=== PATIENT | female | born 1980 | race Caucasian/White ===

== ENCOUNTER 2020-05-15 17:00 | Day surgery (SDC) | payer OTHER ==
[~2020-05-15] VITALS: Ht 167.8 cm; Wt 77.1 kg
[2020-05-15] MEDS ORDERED: NS IV 1000 ML 1,000 ML IV SCH (17:15)
[2020-05-15] MEDS ORDERED: KETOROLAC 30 MG/ML VIAL IVP ONE (17:15)
[2020-05-15] MEDS ORDERED: ONDANSETRON 4 MG/2 ML (SDV) Z0FRAN IVP ONE (17:15)
[2020-05-15] MEDS ORDERED: fentaNYL INJECTION 100 MCG/2 ML AMP IVP ONE (17:15)
--- NOTE | 2020-05-15 17:19 | ED Abdominal Pain ---
General Chief Complaint: Abdominal/GI Problems Stated Complaint: ABD PAIN N/V Nursing Triage Note: PT AMBULATE TO ROOM 05 WITH C/O ABD PAIN, N/V STARTING TODAY. PT WAS LAYING ON THE FLOOR OF THE WAITING ROOM FACE DOWN WHEN THIS RN WENT TO CALL HER BACK. PT QUICKLY STOOD UP AND AMBULATED WITHOUT DIFFICULTY TO THE ROOM. Sepsis Screen: No Definite Risk Source of Information: Patient Exam Limitations: No Limitations History of Present Illness Date Seen by Provider: May 15, 2020 Time Seen by Provider: 17:17 Initial Comments With a rather sudden onset of nausea vomiting and abdominal pain. Periumbilical in location. Pain started at about 1 or shortly thereafter and progressed to nausea and vomiting. No history of this. No history of abdominal surgeries. Timing/Duration: 4-6 Hours Severity/Quality: Severe Location: Periumbilical Radiation: No Radiation Activities at Onset: None Allergies and Home Medications Allergies Coded Allergies: No Known Drug Allergies (Unverified , 05/15/20) Patient Home Medication List Home Medication List Reviewed: Yes Review of Systems Review of Systems Constitutional: see HPI EENTM: No Symptoms Reported Respiratory: No Symptoms Reported Cardiovascular: No Symptoms Reported Gastrointestinal: See HPI, Abdominal Pain, Nausea, Vomiting Genitourinary: No Symptoms Reported Musculoskeletal: no symptoms reported Skin: no symptoms reported Psychiatric/Neurological: No Symptoms Reported Endocrine: No Symptoms Reported Hematologic/Lymphatic: No Symptoms Reported Past Kispdjq-Lzjfnt-Dhsyhv Hx Patient Social History Recent Infectious Disease Expo: No Physical Exam Vital Signs Vital Signs - First Documented 05/15/20 17:11 Temp 35.9 Pulse 68 Resp 17 B/P (MAP) 111/62 (78) O2 Delivery Room Air Capillary Refill : Less Than 3 Seconds Height/Weight/BMI Height: '" Weight: lbs. oz. kg; 27.00 BMI Method: General Appearance: WD/WN, no apparent distress Respiratory: no respiratory distress, no accessory muscle use Gastrointestinal: soft, abnormal bowel sounds (Hypoactive), tenderness Neurologic/Psychiatric: alert, normal mood/affect, oriented x 3 Skin: normal color, warm/dry Progress/Results/Core Measures Results/Orders Lab Results Laboratory Tests Test 05/15/20 17:14 Range/Units White Blood Count 19.5 H 4.3-11.0 10^3/uL Red Blood Count 4.16 3.80-5.11 10^6/uL Hemoglobin 12.8 11.5-16.0 g/dL Hematocrit 38 35-52 % Mean Corpuscular Volume 90 80-99 fL Mean Corpuscular Hemoglobin 31 25-34 pg Mean Corpuscular Hemoglobin Concent 34 32-36 g/dL Red Cell Distribution Width 12.6 10.0-14.5 % Platelet Count 279 130-400 10^3/uL Mean Platelet Volume 10.1 9.0-12.2 fL Immature Granulocyte % (Auto) 0 % Neutrophils (%) (Auto) 89 H 42-75 % Lymphocytes (%) (Auto) 6 L 12-44 % Monocytes (%) (Auto) 4 0-12 % Eosinophils (%) (Auto) 0 0-10 % Basophils (%) (Auto) 0 0-10 % Neutrophils # (Auto) 17.4 H 1.8-7.8 10^3/uL Lymphocytes # (Auto) 1.2 1.0-4.0 10^3/uL Monocytes # (Auto) 0.8 0.0-1.0 10^3/uL Eosinophils # (Auto) 0.0 0.0-0.3 10^3/uL Basophils # (Auto) 0.0 0.0-0.1 10^3/uL Immature Granulocyte # (Auto) 0.1 0.0-0.1 10^3/uL Neutrophils % (Manual) 86 % Lymphocytes % (Manual) 8 % Monocytes % (Manual) 4 % Eosinophils % (Manual) 2 % Blood Morphology Comment NORMAL Sodium Level 141 135-145 MMOL/L Potassium Level 3.7 3.6-5.0 MMOL/L Chloride Level 104 98-107 MMOL/L Carbon Dioxide Level 22 21-32 MMOL/L Anion Gap 15 H 5-14 MMOL/L Blood Urea Nitrogen 14 7-18 MG/DL Creatinine 0.99 0.60-1.30 MG/DL Estimat Glomerular Filtration Rate > 60 BUN/Creatinine Ratio 14 Glucose Level 129 H 70-105 MG/DL Calcium Level 9.5 8.5-10.1 MG/DL Corrected Calcium 8.5-10.1 MG/DL Total Bilirubin 0.6 0.1-1.0 MG/DL Aspartate Amino Transf (AST/SGOT) 28 5-34 U/L Alanine Aminotransferase (ALT/SGPT) 24 0-55 U/L Alkaline Phosphatase 47 40-136 U/L C-Reactive Protein High Sensitivity 0.35 0.00-0.50 MG/DL Total Protein 7.6 6.4-8.2 GM/DL Albumin 4.8 H 3.2-4.5 GM/DL Lipase 33 8-78 U/L Serum Test, Qualitative NEGATIVE NEGATIVE My Orders Orders - JASON CORTEZ APRN Cbc With Automated Diff (05/15/20 17:15) Comprehensive Metabolic Panel (05/15/20 17:15) Lipase (05/15/20 17:15) Hcg,Qualitative Serum (05/15/20 17:15) Ondansetron Injection (Zofran Injectio (05/15/20 17:15) Ketorolac Injection (Toradol Injection) (05/15/20 17:15) Fentanyl Injection (Sublimaze Injection (05/15/20 17:15) Ns Iv 1000 Ml (Sodium Chloride 0.9%) (05/15/20 17:15) Ua Culture If Indicated (05/15/20 17:19) Ct Abdomen/Pelvis W (05/15/20 17:19) Hs C Reactive Protein (05/15/20 17:20) Manual Differential (05/15/20 17:14) Iohexol Injection (Omnipaque 350 Mg/Ml 1 (05/15/20 17:30) Received Contrast (Hold Metformin- Contr (05/15/20 17:30) Ns (Ivpb) (Sodium Chloride 0.9% Ivpb Bag (05/15/20 17:30) Medications Given in ED Current Medications Medications Dose Ordered Sig/Jenifer Route Start Time Stop Time Status Last Admin Dose Admin Fentanyl Citrate 50 mcg ONCE ONCE IVP 05/15/20 17:15 05/15/20 17:17 DC 05/15/20 17:24 50 MCG Iohexol 100 ml ONCE ONCE IV 05/15/20 17:30 05/15/20 17:34 DC 05/15/20 17:55 100 ML Ketorolac Tromethamine 15 mg ONCE ONCE IVP 05/15/20 17:15 05/15/20 17:17 DC 05/15/20 17:24 15 MG Ondansetron HCl 4 mg ONCE ONCE IVP 05/15/20 17:15 05/15/20 17:17 DC 05/15/20 17:24 4 MG Sodium Chloride 100 ml ONCE ONCE IV 05/15/20 17:30 05/15/20 17:34 DC 05/15/20 17:55 100 ML Vital Signs/I&O 05/15/20 17:11 Temp 35.9 Pulse 68 Resp 17 B/P (MAP) 111/62 (78) O2 Delivery Room Air Blood Pressure Mean: 78 Departure Communication (Admissions) Time/Spoke to Consulting Phy: 18:[address] Hester, we will admit to him on Cipro and Flagyl clear liquids until midnight then nothing by mouth with her to be the first surgical case in the morning. After 15 mg of Toradol and 50 mcg of fentanyl her pain is much better controlled. NAME: ANGELIQUE VILLATORO MED REC#: [id number] PT STATUS: REG ER : 1980 PHYSICIAN: JASON CORTEZ APRN ADMIT DATE: 05/15/20/ER Draft Date of Exam:05/15/20 CT ABDOMEN/PELVIS W PROCEDURE: CT abdomen and pelvis with contrast. TECHNIQUE: Multiple contiguous axial images were obtained through the abdomen and pelvis after administration of intravenous contrast. Auto Exposure Controls were utilized during the CT exam to meet ALARA standards for radiation dose reduction. All CT scans use one or more of the following dose optimizing techniques: automated exposure control, MA and/or KvP adjustment based on patient size and exam type or iterative reconstruction. INDICATION: Abdominal pain, nausea, and vomiting started today. COMPARISON STUDIES: None FINDINGS: The lung bases are clear. The liver, gallbladder, spleen, pancreas, adrenal glands and kidneys are normal. The appendix is poorly visualized. The visualized portions of the appendix are normal. Small amount of free fluid is seen in the right-sided posterior cul-de-sac. Uterus and adnexal structures appear unremarkable. Bowel loops demonstrate no inflammation or obstruction. No hernias are present. The osseous and vascular structures are normal. IMPRESSION: 1. There is small amount of free fluid in the right side of the cul-de-sac. This is usually physiologic. 2. Visualized portions of the appendix appear normal. The appendix is incompletely visualized. Dictated on workstation # [id number] Dict: 05/15/201800 Trans: 05/15/20 1808 RICHARD [id number] Interpreted by: ITZEL GRACIA MD Electronically signed by: After reviewing the CT I did call Dr. Gracia from [place] [facility] as there is a target sign in the right lower abdomen on coronal image #[id number]. He agrees this represents an inflamed appendix and will add an addendum to the CT interpretation. Impression Primary Impression: Appendicitis Disposition: ADMITTED INPATIENT Condition: Stable Admissions Decision to Admit Reason: Admit from ER (General) Decision to Admit/Date: May 15, 2020 Time/Decision to Admit Time: 18:24 JASON CORTEZ APRN May 15, 2020 17:19
[2020-05-15 17:21] LABS: BASOPHILS % (AUTO) 0 % (0-10); EOSINOPHILS % (AUTO) 0 % (0-10); HEMATOCRIT 38 % (35-52); HEMOGLOBIN 12.8 g/dL (11.5-16.0); LYMPHOCYTES # (AUTO) 1.2 10^3/uL (1.0-4.0); LYMPHOCYTES % (AUTO) 6 % (12-44); MEAN CORPUSCULAR HEMOGLOBIN 31 pg (25-34); MEAN CORPUSCULAR HGB CONC 34 g/dL (32-36); MEAN CORPUSCULAR VOLUME 90 fL (80-99); MEAN PLATELET VOLUME 10.1 fL (9.0-12.2); MONOCYTES # (AUTO) 0.8 10^3/uL (0.0-1.0); MONOCYTES % (AUTO) 4 % (0-12); NEUTROPHILS # (AUTO) 17.4 10^3/uL (1.8-7.8); NEUTROPHILS % (AUTO) 89 % (42-75); PLATELET COUNT 279 10^3/uL (130-400); WHITE BLOOD COUNT 19.5 10^3/uL (4.3-11.0)
[2020-05-15 17:30] LABS: ALBUMIN 4.8 GM/DL (3.2-4.5)
[2020-05-15] MEDS ORDERED: IOHEXOL 350 MG/ML 100 ML (OMNIPAQUE 350) VIAL IV ONE (17:30)
[2020-05-15] MEDS ORDERED: NS 100 ML (IVPB) BAG IV ONE (17:30)
[2020-05-15] MEDS ORDERED: HOLD METFORMIN - RECEIVED CONTRAST 20 ML VIAL IV SCH (17:30)
[2020-05-15 17:31] LABS: CHLORIDE 104 MMOL/L (98-107); POTASSIUM 3.7 MMOL/L (3.6-5.0); SODIUM 141 MMOL/L (135-145)
[2020-05-15 17:32] LABS: CALCIUM 9.5 MG/DL (8.5-10.1)
[2020-05-15 17:33] LABS: GLUCOSE 129 MG/DL (70-105); TOTAL PROTEIN 7.6 GM/DL (6.4-8.2)
[2020-05-15 17:34] LABS: CARBON DIOXIDE 22 MMOL/L (21-32)
[2020-05-15 17:35] LABS: BILIRUBIN,TOTAL 0.6 MG/DL (0.1-1.0)
[2020-05-15 17:36] LABS: ALKALINE PHOSPHATASE 47 U/L (40-136)
[2020-05-15 17:37] LABS: CREATININE SERUM 0.99 MG/DL (0.60-1.30); GFR ESTIMATED > 60
[2020-05-15 17:38] LABS: BUN/CREATININE RATIO 14
[2020-05-15 17:39] LABS: ALANINE AMINOTRANSFERASE 24 U/L (0-55)
[2020-05-15 17:40] LABS: LIPASE 33 U/L (8-78)
[2020-05-15 17:43] LABS: EOSINOPHILS % (MANUAL) 2 %; LYMPHOCYTES % (MANUAL) 8 %; MONOCYTES % (MANUAL) 4 %; NEUTROPHILS % (MANUAL) 86 %; RBC MORPH NORMAL
--- NOTE | 2020-05-15 18:08 | Diagnostic Imaging Report ---
PROCEDURE: CT abdomen and pelvis with contrast. TECHNIQUE: Multiple contiguous axial images were obtained through the abdomen and pelvis after administration of intravenous contrast. Auto Exposure Controls were utilized during the CT exam to meet ALARA standards for radiation dose reduction. All CT scans use one or more of the following dose optimizing techniques: automated exposure control, MA and/or KvP adjustment based on patient size and exam type or iterative reconstruction. INDICATION: Abdominal pain, nausea, and vomiting started today. COMPARISON STUDIES: None FINDINGS: The lung bases are clear. The liver, gallbladder, spleen, pancreas, adrenal glands and kidneys are normal. The appendix is poorly visualized. The appendix is seen be thickened with some inflammation around this.. Small amount of free fluid is seen in the right-sided posterior cul-de-sac. Uterus and adnexal structures appear unremarkable. Bowel loops demonstrate no inflammation or obstruction. No hernias are present. The osseous and vascular structures are normal. IMPRESSION: 1. The appendix is thickened with mild surrounding inflammation. Small amount of free fluid is seen right-sided cul-de-sac. Dictated by: Dictated on workstation # [id number]
--- NOTE | 2020-05-15 18:51 | Progress Note-Pre Operative ---
Pre-Operative Progress Note H&P Reviewed The H&P was reviewed, patient examined and no changes noted. Date Seen by Provider: May 15, 2020 Time Seen by Provider: 19:00 Date H&P Reviewed: May 15, 2020 Time H&P Reviewed: 19:00 Pre-Operative Diagnosis: acute appendicitis ROLO MORGAN MD May 15, 2020 18:51
--- NOTE | 2020-05-15 18:56 | HISTORY AND PHYSICAL ---
DATE OF SERVICE: HISTORY OF PRESENT ILLNESS: The patient is a 39-year-old female who presented to the Emergency Department with abdominal pain starting earlier today, initially starting in the periumbilical region; however, also in the right lower abdominal quadrant. She also states an episode of nausea and vomiting. She does not report any fever, no chills and states that ever having these symptoms before in the past. CT scan was performed, which did show free fluid around the right cul-de-sac near the appendix, likely consistent with an appendicitis. PAST MEDICAL HISTORY: None. PAST SURGICAL HISTORY: None. ALLERGIES: No known drug allergies. SOCIAL HISTORY: Negative smoke, negative alcohol. FAMILY HISTORY: Noncontributory. VITAL SIGNS: Blood pressure 111/62, temperature 35.9, pulse 68, respirations 17, pulse ox 100% on room air. REVIEW OF SYSTEMS: This is a well-nourished female currently guarded secondary to her abdominal pain. She is not experiencing any shortness of breath or difficulty breathing. No chest pain, palpitations or diaphoresis. She had an episode of nausea and vomiting. No hematemesis, no coffee ground emesis. No diarrhea, constipation, no red blood per rectum, no dark tarry stools. No fever, chills, no recent inadvertent weight loss. All other review of systems negative. PHYSICAL EXAMINATION: CHEST: Clear. Good breath sounds bilaterally. HEART: Regular, no murmurs. EXTREMITIES: No lower extremity edema, negative Homans sign. HEENT: No scleral icterus. NECK: No cervical lymphadenopathy. ABDOMEN: Soft, nondistended. There is pain in the right lower abdominal quadrant at McBurney's point with voluntary guarding, no rebound. SKIN: Warm, dry. LABORATORY DATA: WBC 19.5, hemoglobin 12.8, hematocrit 38, platelets 278. BUN 14, creatinine 0.99. Liver function enzymes are normal. ASSESSMENT AND PLAN: A 39-year-old female with a noncomplicated acute appendicitis. Natural history of this disease process was explained to the patient as well as the risks and benefits of surgery and she is in full understanding of this and would like to proceed with a diagnostic laparoscopy as well as a laparoscopic appendectomy, which we will schedule. Job ID: [id number] DocumentID: [id number] Dictated Date: 05/15/2020 18:48:12 [employer] Operator Date: 05/15/2020 18:56:38 Dictated By: ROLO MORGAN MD
[2020-05-15] MEDS: LACTATED RINGERS 1,000 ML IV ONE ×2 (20:48→23:43)
[2020-05-15] MEDS: LACTATED RINGERS 1,000 ML IV SCH (20:48)
[2020-05-15] MEDS ORDERED: ONDANSETRON 4 MG/2 ML (SDV) Z0FRAN IV PRN (21:45)
[2020-05-15] MEDS: CIPROFLOXACIN 400 MG/D5W 200 ML (PRE-MIX) IV SCH (21:55)
[2020-05-15] MEDS: fentaNYL INJECTION 100 MCG/2 ML AMP IV PRN (21:56)
[2020-05-15] MEDS ORDERED: METRONIDAZOLE 250 MG/50 ML IV SCH ×2 (22:00)
[2020-05-15 23:05] VITALS: BP 132/69
[2020-05-15] MEDS: metroNIDAZOLE 500 MG/100 ML IVPB (PRE-MIX) IV SCH (23:55)
[2020-05-16] VITALS (16 sets, daily range): BP systolic 105–132; BP diastolic 59–78
[2020-05-16 05:41] LABS: BASOPHILS % (AUTO) 0 % (0-10); EOSINOPHILS # (AUTO) 0.1 10^3/uL (0.0-0.3); EOSINOPHILS % (AUTO) 1 % (0-10); HEMATOCRIT 32 % (35-52); LYMPHOCYTES # (AUTO) 1.4 10^3/uL (1.0-4.0); LYMPHOCYTES % (AUTO) 12 % (12-44); MEAN CORPUSCULAR HEMOGLOBIN 31 pg (25-34); MEAN CORPUSCULAR HGB CONC 34 g/dL (32-36); MEAN CORPUSCULAR VOLUME 91 fL (80-99); MEAN PLATELET VOLUME 10.1 fL (9.0-12.2); MONOCYTES # (AUTO) 0.6 10^3/uL (0.0-1.0); MONOCYTES % (AUTO) 5 % (0-12); NEUTROPHILS # (AUTO) 9.6 10^3/uL (1.8-7.8); NEUTROPHILS % (AUTO) 82 % (42-75); PLATELET COUNT 216 10^3/uL (130-400); WHITE BLOOD COUNT 11.8 10^3/uL (4.3-11.0)
[2020-05-16] MEDS: LACTATED RINGERS 1,000 ML IV SCH ×2 (05:49→11:08)
[2020-05-16 05:58] LABS: ALBUMIN 3.8 GM/DL (3.2-4.5); CHLORIDE 105 MMOL/L (98-107); POTASSIUM 3.4 MMOL/L (3.6-5.0); SODIUM 136 MMOL/L (135-145)
[2020-05-16 05:59] LABS: CALCIUM 8.4 MG/DL (8.5-10.1)
[2020-05-16 06:00] LABS: GLUCOSE 103 MG/DL (70-105)
[2020-05-16 06:01] LABS: TOTAL PROTEIN 6.2 GM/DL (6.4-8.2)
[2020-05-16 06:02] LABS: BILIRUBIN,TOTAL 0.8 MG/DL (0.1-1.0); CARBON DIOXIDE 21 MMOL/L (21-32)
[2020-05-16 06:04] LABS: ALKALINE PHOSPHATASE 37 U/L (40-136); CREATININE SERUM 0.97 MG/DL (0.60-1.30); GFR ESTIMATED > 60
[2020-05-16 06:05] LABS: BUN/CREATININE RATIO 13
[2020-05-16 06:07] LABS: ALANINE AMINOTRANSFERASE 17 U/L (0-55)
[2020-05-16] MEDS ORDERED: CATHETER FLUSH 10 ML SYR IV PRN (06:30)
[2020-05-16] MEDS: CIPROFLOXACIN 400 MG/D5W 200 ML (PRE-MIX) IV SCH (07:44)
[2020-05-16] MEDS: metroNIDAZOLE 500 MG/100 ML IVPB (PRE-MIX) IV SCH ×2 (07:44→13:43)
[2020-05-16] MEDS: fentaNYL INJECTION 100 MCG/2 ML AMP IV PRN (07:45)
[2020-05-16] MEDS ORDERED: ROCURONIUM 10 MG/ML 5 ML SYRINGE IV ONE (07:56)
[2020-05-16] MEDS ORDERED: SUCCINYLCHOLINE INJ 100 MG/5 ML SYR/VIAL ONE (07:56)
[2020-05-16] MEDS ORDERED: MIDAZOLAM 2 MG/2 ML (VERSED) VIAL ONE (07:57)
[2020-05-16] MEDS ORDERED: proPOfol 200 MG/20 ML (DIPRIVAN) VIAL IV ONE (07:57)
[2020-05-16] MEDS ORDERED: ONDANSETRON 4 MG/2 ML (SDV) Z0FRAN ONE (07:57)
[2020-05-16] MEDS ORDERED: SEVOFLURANE (ULTANE) 15 ML INHAL SOLN ONE (07:57)
[2020-05-16] MEDS ORDERED: fentaNYL INJECTION 100 MCG/2 ML AMP ONE (07:57)
[2020-05-16] MEDS ORDERED: LIDOCAINE/EPI 1%-1:200,000 (XYLOCAINE) 10 ML VIAL ONE (09:31)
[2020-05-16] MEDS ORDERED: NORE1TAB95 PO (09:47)
[2020-05-16] MEDS ORDERED: ACET-2267 PO (09:47)
[2020-05-16] MEDS ORDERED: MULT-1136 PO (09:47)
[2020-05-16] MEDS ORDERED: ceFAZolin INJECTION 2,000 MG ONE (09:58)
[2020-05-16] MEDS ORDERED: NEOSTIGMINE 3 MG/3 ML VIAL ONE (10:32)
[2020-05-16] MEDS ORDERED: GLYCOPYRROLATE 0.2 MG/ML (ROBINUL) 2 ML VIAL ONE (10:32)
--- NOTE | 2020-05-16 10:36 | Progress Note-Post Operative ---
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
[2020-05-16] MEDS ORDERED: HYDR-3817 PO (10:37)
--- NOTE | 2020-05-16 10:38 | Discharge Inst-Surgical ---
D/C Lap Instructions-CATHY New, Converted, or Re-Newed RX: RX on Chart Follow Up Appt in 2 weeks Activity as tolerated No driving for 24 hours No driving while on pain medications Incentive Spirometry use every 2 hours while awake Regular Diet Symptoms to Report: Fever over 101 degree F, Nausea/Vomiting Infection Signs and Symptoms to report: Increased redness, Foul odor of wound, Increased drainage Bathing instructions: May shower Operative Area Clean/Dry; Keep incision clean/dry If any problems/questions: Contact your physician or go to Emergency Room ROLO MORGAN MD May 16, 2020 10:38
[2020-05-16] MEDS ORDERED: KETOROLAC 30 MG/ML VIAL ONE (10:42)
[2020-05-16] MEDS ORDERED: LACTATED RINGERS 1,000 ML IV PRN (10:45)
[2020-05-16] MEDS ORDERED: ceFAZolin INJECTION 1,000 MG VIAL IV ONE (10:45)
[2020-05-16] MEDS ORDERED: HYDROmorphone 2 MG/ML VIAL (DILAUDID) IV ONE (11:00)
[2020-05-16] MEDS: ONDANSETRON 4 MG/2 ML (SDV) Z0FRAN IVP PRN ×2 (11:22→11:30)
[2020-05-16] MEDS ORDERED: PROMETHAZINE INJ 25 MG/ML (PHENERGAN) AMP ONE (11:36)
--- NOTE | 2020-05-16 14:22 | OPERATIVE REPORT ---
DATE OF SERVICE: 05/16/2020 PREOPERATIVE DIAGNOSIS: Acute appendicitis. POSTOPERATIVE DIAGNOSIS: Acute appendicitis. PROCEDURE: Laparoscopic appendectomy. SURGEON: Rolo Morgan MD BACK END WEB DEVELOPER: Jerel Orozco APRN. ANESTHESIA: General endotracheal. ESTIMATED BLOOD LOSS: Minimal. FINDINGS: Inflamed appendix with no perforation. DISPOSITION: The patient tolerated the procedure well. INDICATIONS: The patient is a 39-year-old female who presented to the Emergency Department with abdominal pain starting earlier in the day. This had initially started in the periumbilical region; however, she also has significant right lower abdominal quadrant pain. She also did report an episode of nausea and vomiting. She did not report any fever, no chills. A CT scan was performed, which did show free fluid in the right cul-de-sac as well as a distended appendix consistent with an appendicitis. DESCRIPTION OF PROCEDURE: The patient was brought to the operating room, laid supine on the table. After adequate IV pain and sedative medications and general endotracheal intubation, the abdomen was prepped and draped in standard surgical fashion. A 0.5% Marcaine with epinephrine was used to anesthetize overlying skin in the left upper abdominal quadrant and a transverse skin incision made using a 15 blade. An 0 silk suture was applied to the medial aspect of the incision for retraction and a Veress needle inserted with a low opening pressure of 0 mmHg and the abdomen was then insufflated to 15 mmHg pressure. A Veress needle removed and a 5 mm Xcel trocar placed followed by a 5 mm 45-degree angle laparoscope visualizing the peritoneal cavity. A 4-quadrant abdominal exploration was performed. There was an inflamed appendix, no perforation, small bowel appeared normal. Under direct visualization, we then proceeded to place a supraumbilical 10 mm port after the skin and peritoneal lining were anesthetized using 0.5% Marcaine with epinephrine and a transverse skin incision made using a 15 blade. In a similar manner, a suprapubic 5 mm port was placed. The patient was then placed in Trendelenburg position as well as plane right side up, left side down. The appendix was then retracted towards the anterior abdominal wall and a window created between the mesoappendix and base of the appendix at the cecum using a [place] dissector. The appendix was then stapled and transected at the cecal base using a CHESTER 45 mm stapler with a 2.5 mm thickness load. The mesoappendix was then stapled and transected with a 2.5 mm thickness reload with visualization of good hemostasis. The appendix was removed through the 10 mm port site using an EndoCatch bag. The 10 mm port site fascia and peritoneum were then closed under direct visualization using a Oleg-Brant device and 0 Vicryl suture. The abdomen was then desufflated and the remaining ports removed. All skin incisions were closed using 4-0 Monocryl running subcuticular sutures. Wounds were then cleaned and covered with Dermabond. The patient tolerated the procedure well. We will start IV normal pain medication as well as a clear liquid diet. When she is tolerating clears, has good pain control with oral pain medication and is ambulating well, we will discharge her home where she will be instructed to do no heavy lifting or exertion for the next two weeks. Job ID: [id number] DocumentID: [id number] Dictated Date: 05/16/2020 10:42:49 Fur Tinter Date: 05/16/2020 14:21:07 Dictated By: ROLO MORGAN MD
--- NOTE | 2020-05-17 07:04 | Anesthesia-General Post-Op ---
General Patient Condition Mental Status/LOC: Same as Preop Cardiovascular: Satisfactory Nausea/Vomiting: Absent Respiratory: Satisfactory Pain: Controlled Complications: Absent Post Op Complications Complications None Follow Up Care/Instructions Patient Instructions None needed. Anesthesia/Patient Condition Patient Condition Patient is doing well, no complaints, stable vital signs, no apparent adverse anesthesia problems. No complications reported per nursing. [place] [facility] [place] Yes MUKUND ENGLAND CRNA May 17, 2020 07:04
== END 2020-05-16 14:00 | disposition home or self-care (01) ==
LOC: EDUNIT# 17:00 → ER 17:03 → 4TH 18:18 → UNDOADMOB 18:18 → SDC 18:18 → 4TH 18:18 → SDC 05-16 14:00 → UNDODISOB 05-16 14:00
PROVIDERS: ATTEND Surgery
DX: K35.80 Unspecified acute appendicitis (principal)
CPT/HCPCS: 44970; 74177; 80053 ×2; 83690; 84703; 85007; 85025; 85027; 86141; 87081; 88304; 99283; U0002; 36415; 87635; 96361; 96374; 96375